=== PATIENT | female | born 1940 | race Caucasian/White ===

== ENCOUNTER 2017-03-07 13:10 | Observation (INO) | payer MEDICARE ==
[2017-03-07] VITALS (8 sets, daily range): BP systolic 135–205; BP diastolic 60–81; PULSE 69–90; RESP 12–20; TEMP 97.6–98.8; O2SAT 95–98
[~2017-03-07] VITALS: Ht 152.4 cm; Wt 70.1 kg
[2017-03-07] MEDS ORDERED: MORPHINE SULFATE 2 MG/ML INJ IM ONE (13:30)
--- NOTE | 2017-03-07 13:42 | PD ---
HPI Chief Complaint: Back/ Neck Pain or Injury Time Seen by Provider: 13:19 Travel History International Travel<30 days: No Contact w/Intl Traveler<30days: No Traveled to known affect area: No History of Present Illness HPI 76 y/o female states she's been having low back pain for the past 6 weeks. She states she went to her primary care physician that thought she strained a muscle. She went to a chiropractor who did x-rays and was concerned she possibly had a compression fracture. He has her scheduled for a MRI on March 12 but given her pain is not improving with Tylenol and a muscle relaxant she elected to come in. She denies any fever, dysuria, incontinence, weakness, numbness, abdominal pain or other concurrent complaints. Quality pain is sharp. Severity is severe per patient. Pain is worse with movement. She denies any specific trauma. PFSH Past Medical History Hx Anticoagulant Therapy: Yes (BABY ASA DAILY) Diabetes: Yes ?: Not Past Surgical History Other Surgery: Yes (skin biopsy with recent skin cancer diagnosis) Social History Tobacco Use: No Allergies-Medications (Allergen,Severity, Reaction): Coded Allergies: Penicillins (Verified Allergy, Severe, 03/07/17) Reported Meds & Prescriptions Reported Meds & Active Scripts Active Reported Sleep Aid (Diphenhydramine HCl (Sleep)) 25 Mg Tab 2 Tab-Cap PO HS Novolog Inj (Insulin Aspart) 1,000 Unit/10 Ml Vial 0 SQ DIRECTED Sliding Scale as directed. Lantus Inj (Insulin Glargine) 1,000 Unit/10 Ml Vial 12 Units SQ DAILY Omeprazole 20 Mg Tab 20 Mg PO DAILY Rosuvastatin (Rosuvastatin Calcium) 20 Mg Tab 20 Mg PO DAILY Aspirin 81 Mg Chew 81 Mg CHEW DAILY Vitamin D3 (Cholecalciferol) 1,000 Unit Cap 1,000 Units PO DAILY Os-Carloz Calcium + D3 (Calcium Carbonate-Cholecalciferol) 500-200 Mg-Unit Tab 1 Tab PO BID Super B Complex (Vitamin B Complex Vit C No.4) 150 Mg Tablet 1 Tab PO DAILY Centrum (Multiple Vitamins W/ Minerals) 1 Chew 1 Tab PO DAILY Review of Systems Except as stated in HPI: all other systems reviewed are Neg Physical Exam Narrative GENERAL: Well-nourished, well-developed patient. SKIN: Warm and dry. HEAD: Normocephalic and atraumatic. EYES: No injection or drainage. ENT: No nasal drainage noted. NECK: Supple, trachea midline. CARDIOVASCULAR: Regular rate and rhythm RESPIRATORY: Breath sounds equal bilaterally. No accessory muscle use. GASTROINTESTINAL: Abdomen soft, non-tender, nondistended. EXTREMITIES: No edema. BACK: Tender to upper lumbar without obvious deformity or step-off, no CVA tenderness. NEUROLOGICAL: Awake and alert. Motor and sensory grossly within normal limits. Normal speech. Data Data Last Documented VS Vital Signs Date Time Temp Pulse Resp B/P (MAP) Pulse Ox O2 Delivery O2 Flow Rate FiO2 03/07/17 16:42 90 18 165/76 (105) 97 Room Air 03/07/17 13:[address] Lumb Spine W/O Contrast (03/07/17 ) Morphine Inj (Morphine Inj) (03/07/17 13:30) Basic Metabolic Panel (Bmp) (03/07/17 14:34) Complete Blood Count With Diff (03/07/17 14:34) Magnesium (Mg) (03/07/17 14:34) Prothrombin Time / Inr (Pt) (03/07/17 14:34) Act Partial Throm Time (Ptt) (03/07/17 14:34) Ecg Monitoring (03/07/17 14:34) Iv Access Insert/Monitor (03/07/17 14:34) Oximetry (03/07/17 14:34) Sodium Chloride 0.9% Flush (Ns Flush) (03/07/17 14:45) Ct Thorax/ Chest W Iv Contrast (03/07/17 ) Admit Order (Ed Use Only) (03/07/17 16:57) Labs Laboratory Tests Test 03/07/17 15:00 White Blood Count 6.6 TH/MM3 Red Blood Count 4.18 MIL/MM3 Hemoglobin 11.3 GM/DL Hematocrit 35.2 % Mean Corpuscular Volume 84.2 FL Mean Corpuscular Hemoglobin 27.0 PG Mean Corpuscular Hemoglobin Concent 32.1 % Red Cell Distribution Width 13.3 % Platelet Count 294 TH/MM3 Mean Platelet Volume 7.3 FL Neutrophils (%) (Auto) 70.5 % Lymphocytes (%) (Auto) 18.6 % Monocytes (%) (Auto) 8.4 % Eosinophils (%) (Auto) 2.2 % Basophils (%) (Auto) 0.3 % Neutrophils # (Auto) 4.7 TH/MM3 Lymphocytes # (Auto) 1.2 TH/MM3 Monocytes # (Auto) 0.6 TH/MM3 Eosinophils # (Auto) 0.1 TH/MM3 Basophils # (Auto) 0.0 TH/MM3 CBC Comment DIFF FINAL Differential Comment Prothrombin Time 9.9 SEC Prothromb Time International Ratio 1.0 RATIO Activated Partial Thromboplast Time 22.0 SEC Blood Urea Nitrogen 38 MG/DL Creatinine 1.40 MG/DL Random Glucose 142 MG/DL Calcium Level 9.8 MG/DL Magnesium Level 1.9 MG/DL Sodium Level 141 MEQ/L Potassium Level 3.8 MEQ/L Chloride Level 106 MEQ/L Carbon Dioxide Level 28.0 MEQ/L Anion Gap 7 MEQ/L Estimat Glomerular Filtration Rate 37 ML/MIN MDM Medical Decision Making Medical Screen Exam Complete: Yes Emergency Medical Condition: Yes Medical Record Reviewed: Yes (past history confirmed) Interpretation(s) CBC & BMP Diagram 03/07/17 15:00 Calcium Level 9.8, Magnesium Level 1.9 Last [address] Impressions [address] 03/07/17 0000 Signed Impressions: Service Date/Time: Tuesday, March 07, 2017 14:01 - CONCLUSION: 1. Right-sided retrocrural mass along the lower thoracic column most characteristic of adenopathy. Further evaluation with chest CT with contrast is recommended. 2. 3. Mild degenerative disc change with annular disc bulges in the lumbar spine with no focal protrusion. Von Padron MD Chest CT 03/07/17 0000 Signed Impressions: Service Date/Time: Tuesday, March 07, 2017 15:39 - CONCLUSION: Low right posterior chest paraspinal mass worrisome for malignancy. This does appear accessible for CT-guided biopsy. Mild aneurysmal dilatation of the ascending thoracic aorta Prominent thyroid goiter. Benign appearing findings in the upper abdomen. Po Tong MD Differential Diagnosis Fracture, strain, sprain Narrative Course Will check CT to rule out fracture and dose with morphine and reevaluate patient updated about mass, will discuss with radiologist d/w patient and patient still uncomfortable, will place in the hospital for pain control Physician Communication Physician Communication dr snyder agrees to admit discussed with IR and states can do in [place] if needed but ith holiday would likely be friday, if can get pain under control can try to do outpatient at main Diagnosis Primary Impression: Paraspinal mass Additional Impression: Back pain Qualified Codes: M54.6 - Pain in thoracic spine Admitting Information Admitting Physician Requests: Admit Angela Hernandez MD Mar 07, 2017 13:42
[2017-03-07] MEDS ORDERED: OS-CTAB3 PO (13:48)
[2017-03-07] MEDS ORDERED: VITA150T PO (13:48)
[2017-03-07] MEDS ORDERED: DIPH1TAB4 PO (13:48)
[2017-03-07] MEDS ORDERED: OMEP20TA93 PO (13:48)
[2017-03-07] MEDS ORDERED: ROSU1TAB8 PO (13:48)
[2017-03-07] MEDS ORDERED: LANTUS2P SQ (13:48)
[2017-03-07] MEDS ORDERED: CHOL10008 PO (13:48)
[2017-03-07] MEDS ORDERED: NOVOLOGP2 SQ (13:48)
[2017-03-07] MEDS ORDERED: ASPI-516 CHEW (13:48)
[2017-03-07] MEDS ORDERED: CENTCHW4 PO (13:48)
--- NOTE | 2017-03-07 14:32 | RADRPT ---
EXAM DATE/TIME: 03/07/2017 14:01 [facility] COMPARISON: No previous studies available for comparison. INDICATIONS : Lower back and pelvic pain. RADIATION DOSE: 36.68 CTDIvol (mGy) MEDICAL HISTORY : Diabetes mellitus type 2. SURGICAL HISTORY : None. ENCOUNTER: Initial ACUITY: 1 day PAIN SCALE: 7/10 LOCATION: back TECHNIQUE: Volumetric scanning of the lumbar spine was performed. Multiplanar reconstructions in the sagittal, coronal and oblique axial planes were performed. Using automated exposure control and adjustment of the mA and/or kV according to patient size, radiation dose was kept as low as reasonably achievable t o obtain optimal diagnostic quality images. DICOM format image data is available electronically for review and comparison. FINDINGS: VERTEBRAE: Normal vertebral body height. Mild degenerative disc changes present at the L5-S1 level with mild dis c space narrowing and hypertrophic change. There is a mild scoliosis. ALIGNMENT: No evidence of subluxation. On the upper images there is an abnormal soft tissue mass in the retrocrural region located along the T11 and T12 vertebra which measures up to approximately 5.4 cm in greatest AP diameter by 1.8 cm in transverse diameter. T12-L1: The thecal sac has a normal diameter. No evidence of disc bulge or protrusion. The neural foramina are patent bilaterally. L1-L2: The thecal sac has a normal diameter. No evidence of disc bulge or protrusion. The neural foramina are patent bilaterally. L2-L3: There is mild annular disc bulge with mild flattening of the anterior thecal sac and no focal protrus ion. The neural foramina are patent bilaterally. L3-L4: There is a mild annular disc bulge with mild flattening of the anterior thecal sac with no focal prot rusion. The neural foramina are patent bilaterally. L4-L5: Moderate disc bulging flattening the anterior thecal sac and narrowing of the neural foramina. There is no focal protrusion. There are degenerative changes involving the facet joints. L5-S1: Annular disc bulge with mild flattening the anterior thecal sac and no focal protrusion. There is leyda rowing of the neural foramina bilaterally. There mild degenerative changes involving the facet joints . CONCLUSION: 1. Right-sided retrocrural mass along the lower thoracic column most characteristic of adenopathy. Fu rther evaluation with chest CT with contrast is recommended. 2. 3. Mild degenerative disc change with annular disc bulges in the lumbar spine with no focal protrusio n. Von Padron MD on March 07, 2017 at 14:24 Board Certified Radiologist. This report was verified electronically.
[2017-03-07] MEDS ORDERED: SODIUM CHLORIDE 0.9% FLUSH 10 ML FLUSH IVF PRN (14:45)
[2017-03-07 15:16] LABS: AUTOMATED NEUTROPHIL # 4.7 TH/MM3 (1.8-7.7); BASOPHIL % 0.3 % (0.0-2.0); EOSINOPHIL # 0.1 TH/MM3 (0-0.4); EOSINOPHIL % 2.2 % (0.0-4.0); HEMATOCRIT 35.2 % (35.0-46.0); HEMOGLOBIN 11.3 GM/DL (11.6-15.3); LYMPH % 18.6 % (9.0-44.0); LYMPHOCYTE # 1.2 TH/MM3 (1.0-4.8); MEAN CELL VOLUME 84.2 FL (80.0-100.0); MEAN CORPUSCULAR HGB CONC 32.1 % (32.0-36.0); MEAN PLATELET VOLUME 7.3 FL (7.0-11.0); MONO % 8.4 % (0.0-8.0); MONOCYTE # 0.6 TH/MM3 (0-0.9); NEUT % 70.5 % (16.0-70.0); PLATELET COUNT 294 TH/MM3 (150-450); RED BLOOD COUNT 4.18 MIL/MM3 (4.00-5.30); RED CELL DISTRIBUTION WIDTH 13.3 % (11.6-17.2); WHITE BLOOD COUNT 6.6 TH/MM3 (4.0-11.0)
[2017-03-07 15:29] LABS: CALCIUM 9.8 MG/DL (8.5-10.1); MAGNESIUM 1.9 MG/DL (1.5-2.5); PROTHROMBIN TIME - PATIENT 9.9 SEC (9.8-11.6)
[2017-03-07 15:33] LABS: CREATININE 1.4 MG/DL (0.50-1.00)
--- NOTE | 2017-03-07 16:25 | RADRPT ---
EXAM DATE/TIME: 03/07/2017 15:39 [facility] COMPARISON: No previous studies available for comparison. INDICATIONS : Evaluate for mass. IV CONTRAST: 50 cc Visipaque (iodixanol) IV RADIATION DOSE: 9.82 CTDIvol (mGy) MEDICAL HISTORY : Diabetes mellitus type 2. SURGICAL HISTORY : None. ENCOUNTER: Initial ACUITY: 1 day PAIN SCALE: 5/10 LOCATION: chest TECHNIQUE: Volumetric scanning of the chest was performed. Using automated exposure control and adjustment of t he mA and/or kV according to patient size, radiation dose was kept as low as reasonably achievable to obtain optimal diagnostic quality images. DICOM format image data is available electronically for review and comparison. Follow-up recommendations for detected pulmonary nodules are based at a minimum on nodule size and pa tient risk factors according to Fleischner Society Guidelines. FINDINGS: LUNGS: There is no consolidation or pneumothorax. No concerning pulmonary nodule is visualized. PLEURA: There is no pleural thickening or pleural effusion. MEDIASTINUM: Prominent goitrous enlargement of the thyroid diffusely. The right lobe is particularly enlarged and nodular measuring greater than 6 cm with some compression and displacement of the trachea. In the pos terior mediastinum, there is a para-aortic and paraspinal mass in the low posterior medial right ches t extending slightly into the retrocrural region. This mass measures approximately 7 x 2 cm (long axi s by short axis). There is no evidence of central mediastinal adenopathy. No hilar adenopathy is pres ent. There are coronary artery calcifications noted. There is mild aneurysmal dilatation of the ascen ding thoracic aorta to a diameter of 4.6 cm. AXILLAE: Within normal limits. No lymphadenopathy. SKELETAL: Within normal limits for patient age. MISCELLANEOUS: Adrenals appear benign. Right kidney is significant atrophic. Multiple cysts involving the left kidne y. Gallbladder is mildly distended with dependent sludge or tiny stones. CONCLUSION: Low right posterior chest paraspinal mass worrisome for malignancy. This does appear accessible for C T-guided biopsy. Mild aneurysmal dilatation of the ascending thoracic aorta Prominent thyroid goiter. Benign appearing findings in the upper abdomen. Po Tong MD on March 07, 2017 at 16:16 Board Certified Radiologist. This report was verified electronically.
[2017-03-07] MEDS ORDERED: NALOXONE HCL 0.4 MG/ML AMP IV PUSH PRN (17:15)
[2017-03-07] MEDS ORDERED: SODIUM CHLORIDE 0.9% FLUSH 10 ML FLUSH IV FLUSH PRN (17:15)
[2017-03-07] MEDS ORDERED: MORPHINE SULFATE 4 MG/ML INJ IV PUSH PRN (17:15)
--- NOTE | 2017-03-07 17:28 | HHI.HP ---
HPI Service [facility] Primary Care Physician Non-Staff Admission Diagnosis Chest paraspinal mass, back pain Diagnoses: Chief Complaint: Low back pain Travel History International Travel<30 Days: No Contact w/Intl Traveler <30 Da: No Traveled to Known Affected Are: No History of Present Illness Written by Nayeli Loco, acting as scribe for Dr. Oglesby on 03/07/17 at 17:15. Ms. Kaur is a 76-year-old female patient with a known medical history of DM, hyperlipidemia and chronic back pain who presented to the ED with worsening low back. Patient states that she has been suffering from lower back pain for the last 6 weeks. She has seen a chiropractor in the outpatient setting who has been adjusting her with no relief. She takes Tylenol and Ibuprofen on and off with a muscle relaxer with little relief. Patient states pain is stabbing and shooting in nature, is mostly constant, worsening with increased movement, located in her mid-back and radiates to her mid abdomen, does not radiate down lower extremities. Denies any changes in bowel or bladder habits, denies any incontinence. Denies any recent fever, chills, headache, shortness of breath, ab pain, n/v/d or dysuria. PCP is Dr. Gutierres in [facility]. Review of Systems Constitutional: DENIES: Fever, Chills Eyes: DENIES: Blurred vision, Diplopia Ears, nose, mouth, throat: DENIES: Vertigo Respiratory: DENIES: Cough Cardiovascular: DENIES: Chest pain Gastrointestinal: DENIES: Abdominal pain, Constipation, Diarrhea, Nausea, Vomiting Musculoskeletal: COMPLAINS OF: Back pain Psychiatric: DENIES: Anxiety Except as stated in HPI: all other systems reviewed are Neg Past Family Social History Past Medical History Chronic back pain Type 2 diabetes mellitus Hyperlipidemia GERD CKD Past Surgical History Denies any surgeries. Reported Medications Active Reported Sleep Aid (Diphenhydramine HCl (Sleep)) 25 Mg Tab 2 Tab-Cap PO HS Novolog Inj (Insulin Aspart) 1,000 Unit/10 Ml Vial 0 SQ DIRECTED Sliding Scale as directed. Lantus Inj (Insulin Glargine) 1,000 Unit/10 Ml Vial 12 Units SQ DAILY Omeprazole 20 Mg Tab 20 Mg PO DAILY Rosuvastatin (Rosuvastatin Calcium) 20 Mg Tab 20 Mg PO DAILY Aspirin 81 Mg Chew 81 Mg CHEW DAILY Vitamin D3 (Cholecalciferol) 1,000 Unit Cap 1,000 Units PO DAILY Os-Carloz Calcium + D3 (Calcium Carbonate-Cholecalciferol) 500-200 Mg-Unit Tab 1 Tab PO BID Super B Complex (Vitamin B Complex Vit C No.4) 150 Mg Tablet 1 Tab PO DAILY Centrum (Multiple Vitamins W/ Minerals) 1 Chew 1 Tab PO DAILY Allergies: Coded Allergies: Penicillins (Verified Allergy, Severe, 03/07/17) Active Ordered Medications Current Medications Medications (Trade) Dose Ordered Sig/Lester Route Start Time Stop Time Status Last Admin (NS Flush) 2 ml UNSCH PRN IVF 03/07/17 14:45 Family History Paternal medical history had a history of lung cancer. Brother had eye cancer with metastasis. Maternal medical history significant for Alzheimer's. Social History Denies any tobacco abuse, alcohol use or illicit drug use. Physical Exam Vital Signs Vital Signs Date Time Temp Pulse Resp B/P (MAP) Pulse Ox O2 Delivery O2 Flow Rate FiO2 03/07/17 16:42 90 18 165/76 (105) 97 Room Air 03/07/17 15:07 17 03/07/17 15:00 18 97 Room Air 03/07/17 13:12 98.2 88 18 205/81 (122) 98 Physical Exam GENERAL: This is a well-nourished, well-developed female patient, with complaints of lower back pain. SKIN: No rashes, ecchymoses or lesions. Warm and dry. HEAD: Atraumatic. Normocephalic. EYES: Pupils equal round and reactive. Extraocular motions intact. No scleral icterus. No injection or drainage. ENT: Nose without bleeding. Throat without erythema, tonsillar hypertrophy or exudate. Uvula midline. Airway patent. NECK: Trachea midline. No JVD. Supple. CARDIOVASCULAR: Regular rate and rhythm without murmurs, gallops, or rubs. RESPIRATORY: Clear to auscultation. Breath sounds equal bilaterally. No wheezes , rales, or rhonchi. GASTROINTESTINAL: Abdomen soft, non-tender, nondistended. No guarding. MUSCULOSKELETAL: Extremities without clubbing, cyanosis, or edema. No joint tenderness, effusion, or edema noted. NEUROLOGICAL: Awake and alert. Cranial nerves II through XII intact. Motor and sensory grossly within normal limits. Five out of 5 muscle strength in all muscle groups. Normal speech. Laboratory Laboratory Tests Test 03/07/17 15:00 White Blood Count 6.6 Red Blood Count 4.18 Hemoglobin 11.3 Hematocrit 35.2 Mean Corpuscular Volume 84.2 Mean Corpuscular Hemoglobin 27.0 Mean Corpuscular Hemoglobin Concent 32.1 Red Cell Distribution Width 13.3 Platelet Count 294 Mean Platelet Volume 7.3 Neutrophils (%) (Auto) 70.5 Lymphocytes (%) (Auto) 18.6 Monocytes (%) (Auto) 8.4 Eosinophils (%) (Auto) 2.2 Basophils (%) (Auto) 0.3 Neutrophils # (Auto) 4.7 Lymphocytes # (Auto) 1.2 Monocytes # (Auto) 0.6 Eosinophils # (Auto) 0.1 Basophils # (Auto) 0.0 CBC Comment DIFF FINAL Differential Comment Prothrombin Time 9.9 Prothromb Time International Ratio 1.0 Activated Partial Thromboplast Time 22.0 Blood Urea Nitrogen 38 Creatinine 1.40 Random Glucose 142 Calcium Level 9.8 Magnesium Level 1.9 Sodium Level 141 Potassium Level 3.8 Chloride Level 106 Carbon Dioxide Level 28.0 Anion Gap 7 Estimat Glomerular Filtration Rate 37 Result Diagram: 03/07/17 1500 03/07/17 1500 Imaging Last Impressions Lumbar Spine CT 03/07/17 0000 Signed Impressions: Service Date/Time: Tuesday, March 07, 2017 14:01 - CONCLUSION: 1. Right-sided retrocrural mass along the lower thoracic column most characteristic of adenopathy. Further evaluation with chest CT with contrast is recommended. 2. 3. Mild degenerative disc change with annular disc bulges in the lumbar spine with no focal protrusion. Von Padron MD Chest CT 03/07/17 0000 Signed Impressions: Service Date/Time: Tuesday, March 07, 2017 15:39 - CONCLUSION: Low right posterior chest paraspinal mass worrisome for malignancy. This does appear accessible for CT-guided biopsy. Mild aneurysmal dilatation of the ascending thoracic aorta Prominent thyroid goiter. Benign appearing findings in the upper abdomen. Po Tong MD Septic Shock Reassessment Septic shock perfusion: reassessment completed Caprini VTE Risk Assessment Caprini VTE Risk Assessment: Mod/High Risk (score >= 2) Caprini Risk Assessment Model Point Value = 1 Point Value = 2 Point Value = 3 Point Value = 5 Age 41-60 Minor surgery BMI > 25 kg/m2 Swollen legs Varicose veins or History of unexplained or recurrent spontaneous Oral contraceptives or hormone replacement Sepsis (< 1 month) Serious lung disease, including pneumonia (< 1 month) Abnormal pulmonary function Acute myocardial infarction Congestive heart failure (< 1 month) History of inflammatory bowel disease Medical patient at bed rest Age 61-74 Arthroscopic surgery Major open surgery (> 45 min) Laparoscopic surgery (> 45 min) Malignancy Confined to bed (> 72 hours) Immobilizing plaster cast Central venous access Age >= 75 History of VTE Family history of VTE Factor V Leiden Prothrombin [id number] Lupus anticoagulant Anticardiolipin antibodies Elevated serum homocysteine Heparin-induced thrombocytopenia Other congenital or acquired thrombophilia Stroke (< 1 month) Elective arthroplasty Hip, pelvis, or leg fracture Acute spinal cord injury (< 1 month) Prophylaxis Regimen Total Risk Factor Score Risk Level Prophylaxis Regimen 0-1 Low Early ambulation 2 Moderate Order ONE of the following: *Sequential Compression Device (SCD) *Heparin 5000 units SQ BID 3-4 Higher Order ONE of the following medications: *Heparin 5000 units SQ TID *Enoxaparin/Lovenox 40 mg SQ daily (WT < 150 kg, CrCl > 30 mL/min) *Enoxaparin/Lovenox 30 mg SQ daily (WT < 150 kg, CrCl > 10-29 mL/min) *Enoxaparin/Lovenox 30 mg SQ BID (WT < 150 kg, CrCl > 30 mL/min) AND/OR *Sequential Compression Device (SCD) 5 or more Highest Order ONE of the following medications: *Heparin 5000 units SQ TID (Preferred with Epidurals) *Enoxaparin/Lovenox 40 mg SQ daily (WT < 150 kg, CrCl > 30 mL/min) *Enoxaparin/Lovenox 30 mg SQ daily (WT < 150 kg, CrCl > 10-29 mL/min) *Enoxaparin/Lovenox 30 mg SQ BID (WT < 150 kg, CrCl > 30 mL/min) AND *Sequential Compression Device (SCD) Assessment and Plan Problem List: (1) Back pain ICD Code: M54.9 - Dorsalgia, unspecified Status: Acute (2) Paraspinal mass ICD Code: R22.2 - Localized swelling, mass and lump, trunk Status: Acute Assessment and Plan Ms. Kaur is a 76-year-old female patient with a known medical history of DM, hyperlipidemia and chronic back pain who presented to the ED with worsening low back. Paraspinal mass concerning for malignancy Acute on chronic lower back pain suspect secondary to above Chest CT reviewed showing low right posterior chest paraspinal mass worrisome for malignancy. This does appear accessible for CT guided biopsy. Mild aneurysmal dilatation of the ascending thoracic aorta Prominent thyroid goiter. Benign appearing findings in the upper abdomen. Lumbar CT reviewed showing right-sided retrocrural mass along the lower thoracic column most characteristic of adenopathy. Further evaluation with chest CT with contrast is recommended. Mild degenerative disc change with annular disc bulges in the lumbar spine with no focal protrusion. CBC reviewed which is essentially unremarkable. PT requested for evaluation and treatment, appreciate further input and recommendations. ED Physician spoke with IR who states patient can either [facility] to perform biopsy or can perform on an outpatient basis. Will admit for pain control and continue to follow patient clinically. Chronic Kidney disease: Creatinine 1.4. This is patient's baseline. Stable. Follow BMP in am. Type 2 diabetes mellitus, chronic: ACCU checks ACHS, sliding scale insulin, cover as needed. Hypertension, suspect secondary to pain. Control pain, Morphine IV available PRN per pain scale. Hyperlipidemia, chronic: Continue home statin. Vitamin D deficiency: Continue Vit D supplementation. DVT Prophylaxis: SCDs. Lovenox. This note was transcribed by EKTA Ferrara . I, Dr. Clara Oglesby personally performed the history, physical exam, and medical decision making; and confirmed the accuracy of the information in the transcribed note. Authenticated by Dr. Clara Oglesby on 03/07/17 at 17:15. Physician Certification 2 Midnight Certification Type: Admission for Inpatient Services Order for Inpatient Services The services are ordered in accordance with Medicare regulations or non- Medicare payer requirements, as applicable. In the case of services not specified as inpatient-only, they are appropriately provided as inpatient services in accordance with the 2-midnight benchmark. Estimated LOS (days): 2 2 days is the estimated time the patient will need to remain in the hospital, assuming treatment plan goals are met and no additional complications. Post-Hospital Plan: Not yet determined Problem Qualifiers (1) Back pain: Qualified Codes: M54.6 - Pain in thoracic spine Nayeli Loco Mar 07, 2017 17:28 Clara Oglesby MD Mar 07, 2017 17:33
[2017-03-07] MEDS ORDERED: GLUCAGON 1 MG/ML VIAL OTHER PRN (17:30)
[2017-03-07] MEDS ORDERED: DEXTROSE 50% IN WATER 50 ML VIAL(D50) IV PUSH PRN (17:30)
[2017-03-07] MEDS ORDERED: SODIUM CHLOR 0.9% 1000 ML INJ 1,000 ML IV SCH (17:45)
[2017-03-07] MEDS ORDERED: LACTULOSE SYRUP 20 GM/30 ML CUP PO PRN (18:00)
[2017-03-07] MEDS ORDERED: ACETAMINOPHEN 325 MG TAB PO PRN (18:00)
[2017-03-07] MEDS ORDERED: ENOXAPARIN SODIUM 40 MG/0.4 ML SYRINGE SQ SCH (18:00)
[2017-03-07] MEDS ORDERED: BISACODYL 10 MG SUPP RECTAL PRN (18:00)
[2017-03-07] MEDS ORDERED: IODIXANOL 320 MG/ML 10 ML VIAL (for Rad CT) IVCONTRAST ONE (18:35)
[2017-03-07] MEDS: DOCUSATE SODIUM 50 MG/SENNA 8.6 MG TAB PO SCH (19:55)
[2017-03-07] MEDS: SODIUM CHLORIDE 0.9% FLUSH 10 ML FLUSH IV FLUSH SCH (19:55)
[2017-03-07] MEDS: INSULIN ASPART SUPPLEMENTAL SCALE SQ SCH (20:26)
[2017-03-07] MEDS ORDERED: MAGNESIUM HYDROXIDE SUSP 30 ML CUP PO PRN (21:00)
[2017-03-07] MEDS ORDERED: SENNOSIDES 8.6 MG TAB PO PRN (21:00)
[2017-03-07] MEDS ORDERED: MORPHINE SULFATE 2 MG/ML INJ IV PRN (23:00)
[2017-03-07] MEDS: oxyCODONE/ACETAMINOPHEN 5 MG/325 MG TAB PO PRN (23:19)
[2017-03-08] VITALS: BP 159/70; PULSE 85; RESP 20; TEMP 97; O2SAT 95
[2017-03-08] MEDS: MORPHINE SULFATE 2 MG/ML INJ IV PUSH PRN ×2 (00:15→04:30)
[2017-03-08] MEDS: oxyCODONE/ACETAMINOPHEN 5 MG/325 MG TAB PO PRN ×3 (03:31→12:54)
[2017-03-08] MEDS: INSULIN ASPART SUPPLEMENTAL SCALE SQ SCH ×2 (07:43→11:49)
[2017-03-08 07:50] VITALS: BP 151/67; PULSE 77; RESP 20; TEMP 98.6; O2SAT 95
--- NOTE | 2017-03-08 08:39 | HHI.PR ---
Subjective Remarks Ambulates without problems. The pain is controlled by by mouth pain medications. Feels comfortable to go home. No motor deficit. No paresthesia. Objective Vitals Vital Signs Date Time Temp Pulse Resp B/P (MAP) Pulse Ox O2 Delivery O2 Flow Rate FiO2 03/08/17 00:00 97.0 85 20 159/70 (99) 95 03/07/17 20:38 96 21 03/07/17 20:00 97.6 73 20 135/60 (85) 96 03/07/17 18:00 98.8 69 12 148/63 (91) 95 03/07/17 17:55 75 18 155/62 (93) 96 03/07/17 17:29 97 21 03/07/17 16:42 90 18 165/76 (105) 97 Room Air 03/07/17 15:07 17 03/07/17 15:00 18 97 Room Air 03/07/17 13:12 98.2 88 18 205/81 (122) 98 I/O 03/07/17 03/07/17 03/07/17 03/08/17 03/08/17 03/08/17 07:00 15:00 23:00 07:00 15:00 23:00 Intake Total 546 ml Balance 546 ml Intake Oral 120 ml IV Total 426 ml # Voids 2 Result Diagram: 03/07/17 1500 03/07/17 1500 Imaging Last Impressions Lumbar Spine CT 03/07/17 0000 Signed Impressions: Service Date/Time: Tuesday, March 07, 2017 14:01 - CONCLUSION: 1. Right-sided retrocrural mass along the lower thoracic column most characteristic of adenopathy. Further evaluation with chest CT with contrast is recommended. 2. 3. Mild degenerative disc change with annular disc bulges in the lumbar spine with no focal protrusion. Von Padron MD Chest CT 03/07/17 0000 Signed Impressions: Service Date/Time: Tuesday, March 07, 2017 15:39 - CONCLUSION: Low right posterior chest paraspinal mass worrisome for malignancy. This does appear accessible for CT-guided biopsy. Mild aneurysmal dilatation of the ascending thoracic aorta Prominent thyroid goiter. Benign appearing findings in the upper abdomen. Po Tong MD Objective Remarks GENERAL: This is a well-nourished, well-developed female patient, with complaints of lower back pain. CARDIOVASCULAR: Regular rate and rhythm without murmurs, gallops, or rubs. RESPIRATORY: Clear to auscultation. Breath sounds equal bilaterally. No wheezes , rales, or rhonchi. GASTROINTESTINAL: Abdomen soft, non-tender, nondistended. No guarding. MUSCULOSKELETAL: Extremities without clubbing, cyanosis, or edema. No joint tenderness, effusion, or edema noted. NEUROLOGICAL: Awake and alert. Cranial nerves II through XII intact. Motor and sensory grossly within normal limits. Five out of 5 muscle strength in all muscle groups. Normal speech. A/P Problem List: (1) Back pain ICD Code: M54.9 - Dorsalgia, unspecified Status: Acute (2) Paraspinal mass ICD Code: R22.2 - Localized swelling, mass and lump, trunk Status: Acute Assessment and Plan Ms. Kaur is a 76-year-old female patient with a known medical history of DM, hyperlipidemia and chronic back pain who presented to the ED with worsening low back. Paraspinal mass concerning for malignancy Acute on chronic lower back pain suspect secondary to above Chest CT reviewed showing low right posterior chest paraspinal mass worrisome for malignancy. This does appear accessible for CT guided biopsy. Mild aneurysmal dilatation of the ascending thoracic aorta Prominent thyroid goiter. Benign appearing findings in the upper abdomen. Lumbar CT reviewed showing right-sided retrocrural mass along the lower thoracic column most characteristic of adenopathy. Further evaluation with chest CT with contrast is recommended. Mild degenerative disc change with annular disc bulges in the lumbar spine with no focal protrusion. CBC reviewed which is essentially unremarkable. PT requested for evaluation and treatment, appreciate further input and recommendations. ED Physician spoke with IR who states patient can either transfer to [facility] on Friday to perform biopsy or can perform on an outpatient basis. Will admit for pain control and continue to follow patient clinically. Chronic Kidney disease: Creatinine 1.4. This is patient's baseline. Stable. Follow BMP in am. Type 2 diabetes mellitus, chronic: ACCU checks ACHS, sliding scale insulin, cover as needed. Hypertension, suspect secondary to pain. Control pain, Morphine IV available PRN per pain scale. Hyperlipidemia, chronic: Continue home statin. Vitamin D deficiency: Continue Vit D supplementation. DVT Prophylaxis: SCDs. Lovenox. Discharge Planning Discharged home in stable condition to follow-up with PCP and consultants as outpatient Diet heart healthy diet Medications per medication reconciliation Activity ad marcus. as tolerated Problem Qualifiers (1) Back pain: Qualified Codes: M54.6 - Pain in thoracic spine Clara Oglesby MD Mar 08, 2017 08:39
[2017-03-08 08:44] LABS: AUTOMATED NEUTROPHIL # 3.5 TH/MM3 (1.8-7.7); BASOPHIL % 0.5 % (0.0-2.0); EOSINOPHIL # 0.1 TH/MM3 (0-0.4); EOSINOPHIL % 2.4 % (0.0-4.0); HEMATOCRIT 33.8 % (35.0-46.0); HEMOGLOBIN 10.9 GM/DL (11.6-15.3); LYMPH % 23.2 % (9.0-44.0); LYMPHOCYTE # 1.2 TH/MM3 (1.0-4.8); MEAN CELL VOLUME 84.3 FL (80.0-100.0); MEAN CORPUSCULAR HGB CONC 32.1 % (32.0-36.0); MEAN PLATELET VOLUME 7.6 FL (7.0-11.0); MONO % 9.7 % (0.0-8.0); MONOCYTE # 0.5 TH/MM3 (0-0.9); NEUT % 64.2 % (16.0-70.0); PLATELET COUNT 297 TH/MM3 (150-450); RED BLOOD COUNT 4.01 MIL/MM3 (4.00-5.30); RED CELL DISTRIBUTION WIDTH 13.5 % (11.6-17.2); WHITE BLOOD COUNT 5.3 TH/MM3 (4.0-11.0)
[2017-03-08 08:57] LABS: BICARBONATE 26.5 MEQ/L (21.0-32.0); CALCIUM 9.4 MG/DL (8.5-10.1)
[2017-03-08] MEDS ORDERED: PANTOPRAZOLE SOD 20 MG DELAYED RELEASE TAB PO SCH (09:00)
[2017-03-08] MEDS: SODIUM CHLORIDE 0.9% FLUSH 10 ML FLUSH IV FLUSH SCH (09:00)
[2017-03-08] MEDS ORDERED: CALCIUM/VITAMIN D 250 MG/125 U TAB PO SCH (09:00)
[2017-03-08] MEDS ORDERED: VITAMIN B COMPLEX/VIT C TAB PO SCH (09:00)
[2017-03-08] MEDS ORDERED: CHOLECALCIFEROL (VIT D3) 1000 UNIT TAB PO SCH (09:00)
[2017-03-08] MEDS ORDERED: ASPIRIN 81 MG CHEW TAB CHEW SCH (09:00)
[2017-03-08] MEDS ORDERED: ATORVASTATIN 40 MG TAB PO SCH (09:00)
[2017-03-08 09:01] LABS: CREATININE 1.3 MG/DL (0.50-1.00)
[2017-03-08] MEDS: DOCUSATE SODIUM 50 MG/SENNA 8.6 MG TAB PO SCH (09:38)
[2017-03-08 11:50] VITALS: BP 170/77; PULSE 88; RESP 20; TEMP 98.4; O2SAT 93
[2017-03-08] MEDS ORDERED: PERC5TAB12 PO (13:20)
--- NOTE | 2017-03-08 13:21 | HHI.DCPOC ---
Discharge Care Plan Goals to Promote Your Health * To prevent worsening of your condition and complications * To maintain your health at the optimal level Directions to Meet Your Goals Take your medications as prescribed Follow your dietary instruction Follow activity as directed Keep your appointments as scheduled Take your immunizations and boosters as scheduled If your symptoms worsen call your PCP, if no PCP go to Urgent Care Center or Emergency Room Smoking is Dangerous to Your Health. Avoid second hand smoke Call the 24-hour hour crisis hotline for domestic abuse at Clara Oglesby MD Mar 08, 2017 13:21
[2017-03-08] MEDS ORDERED: PERI PO (13:37)
[2017-03-08 13:54] VITALS: RESP 18
== END 2017-03-08 14:52 | disposition home or self-care (01) ==
LOC: PHED 13:10 → PHEDA 16:58 → INTOOBSV 16:58 → PH3B 17:53
PROVIDERS: ADMIT Hospitalist; ATTEND Hospitalist
DX: M54.5 Low back pain (principal); E78.5 Hyperlipidemia, unspecified; N18.9 Chronic kidney disease, unspecified; E11.22 Type 2 diabetes mellitus with diabetic chronic kidney disease; G89.29 Other chronic pain; R22.2 Localized swelling, mass and lump, trunk; I71.2 Thoracic aortic aneurysm, without rupture; E04.9 Nontoxic goiter, unspecified; M51.36 Other intervertebral disc degeneration, lumbar region; I12.9 Hypertensive chronic kidney disease with stage 1 through stage 4 chronic kidney disease, or unspecified chronic kidney disease; E55.9 Vitamin D deficiency, unspecified; Z79.899 Other long term (current) drug therapy; Z79.4 Long term (current) use of insulin; K21.9 Gastro-esophageal reflux disease without esophagitis
CPT/HCPCS: 71260; 72131; 80048; 82948; 83735; 85025; 85610; 85730; 96372; 96374; 96376; 97162; 99285; G0378; G8987; G8988; J1650; J2270; J7030; Q9967

== ENCOUNTER 2017-03-14 06:35 | Day surgery (SDC) | payer MEDICARE ==
[~2017-03-14] VITALS: Ht 152.4 cm; Wt 70.0 kg
[~2017-03-14 06:35] MED LIST: ASPI-516 CHEW; CENTCHW4 PO; CHOL10008 PO; DIPH1TAB4 PO; LANTUS2P SQ; NOVOLOGP2 SQ; OMEP20TA93 PO; OS-CTAB3 PO; PERC5TAB12 PO; PERI PO; ROSU1TAB8 PO; VITA150T PO
[2017-03-14 06:56] VITALS: BP 148/75; PULSE 100; RESP 20; TEMP 98.3; O2SAT 95
[2017-03-14] MEDS ORDERED: TIZA4CAP3 PO (07:00)
[2017-03-14] MEDS ORDERED: SODIUM CHLOR 0.9% 1000 ML INJ 1,000 ML IV SCH (07:15)
[2017-03-14] MEDS ORDERED: PANTOPRAZOLE SOD 20 MG DELAYED RELEASE TAB PO ONE (08:45)
[2017-03-14] MEDS ORDERED: CALCIUM CARBONATE 500 MG CHEWABLE TAB PO ONE ×2 (08:45)
[2017-03-14] MEDS ORDERED: MIDAZOLAM HCL 2 MG/2 ML VIAL ONE (09:50)
[2017-03-14] MEDS ORDERED: LIDOCAINE HCL 1% 20 ML VIAL ONE (09:52)
[2017-03-14 10:50] VITALS: BP 154/95; PULSE 88; RESP 18; TEMP 97.9; O2SAT 94
[2017-03-14 11:05] VITALS: BP 131/85; PULSE 88; RESP 18; O2SAT 96
[2017-03-14 11:35] VITALS: BP 123/79; PULSE 85; RESP 18; O2SAT 96
[2017-03-14 12:00] VITALS: BP 139/75; PULSE 83; RESP 18; O2SAT 96
[2017-03-14 12:30] VITALS: BP 129/75; PULSE 83; RESP 18; O2SAT 96
--- NOTE | 2017-03-14 15:59 | RADRPT ---
EXAM DATE/TIME: 03/14/2017 10:24 [facility] COMPARISON: No previous studies available for comparison. INDICATIONS : Paraspinal mass biopsy. SEDATION TIME: 15 minutes BIOPSY SITE: Right paraspinal mass. MEDICATION(S): 1.) 0.5 mg midazolam (Versed) IV 2.) 25 mcg fentanyl (Sublimaze) IV DEVICE(S): 1.) 18 gauge Tem[place] core biopsy needle MEDICAL HISTORY : Diabetes mellitus type 2. Hypertension. Chronic kidney disease. SURGICAL HISTORY : None. ENCOUNTER: Initial ACUITY: 1 day PAIN SCORE: 3/10 LOCATION: mid-back A total of one core specimen(s) were obtained and sent to the laboratory for pathologic evaluation. PROCEDURE: 1. CT guided bone deep biopsy. Prior to the procedure informed consent was obtained. Any appropriate prior imaging studies were rev iewed. Using automated exposure control and adjustment of the mA and/or kV according to patient size, radiat ion dose was kept as low as reasonably achievable to obtain optimal diagnostic quality images. DICOM format image data is available electronically for review and comparison. The site was prepped in a sterile fashion. Full sterile technique was used, including cap, mask, mae rile gloves and gown and a large sterile sheet. Hand hygiene and 2% chlorhexidine and/or betadine/al cohol prep was utilized per protocol for cutaneous antisepsis. The skin and subcutaneous tissues wer e infiltrated with local anesthetic solution. With CT guidance the previously identified target was localized. Biopsy was performed using the presc ribed needle as above. Adequate hemostasis was obtained with compression at the puncture site. Follow-up CT scan reveals no hemorrhage. The patient tolerated the procedure well and there were no complications. The patient was returned to the Radiology Outpatient Unit in stable condition. CONCLUSION: Uncomplicated CT guided biopsy. Jay Marquez MD on March 14, 2017 at 15:56 Board Certified Radiologist. This report was verified electronically.
== END 2017-03-14 13:00 | disposition home or self-care (01) ==
LOC: HRAD 06:35 → HRIP 06:36 → HRAD 13:00
PROVIDERS: ATTEND Hospitalist
DX: R22.2 Localized swelling, mass and lump, trunk (principal); I12.9 Hypertensive chronic kidney disease with stage 1 through stage 4 chronic kidney disease, or unspecified chronic kidney disease; N18.9 Chronic kidney disease, unspecified; E11.22 Type 2 diabetes mellitus with diabetic chronic kidney disease
CPT/HCPCS: 20225; 77012; 88307; 88311; 99152; J2250; J3010; 88305

== ENCOUNTER → 2017-04-29 | Outpatient (CLI) | payer MEDICARE ==
[~2017-04-29] MED LIST changes: -PERI PO; +TIZA4CAP3 PO
--- NOTE | 2017-05-05 14:33 | RSPPFT ---
DATE OF PROCEDURE: 04/29/17 COMMENTS: Spirometry with FVC of 2.7, FEV1 of 1.9, FEV1/FVC ratio at 71%. IMPRESSION: 1. Moderately severe airways obstruction. 2. Post-bronchodilator study was not performed.
== END ==
LOC: HRSP 09:58
PROVIDERS: ATTEND Thoracic Surgery (Cardiothoracic Vascular Surgery)
DX: R06.00 Dyspnea, unspecified (principal)
CPT/HCPCS: 94010